=== PATIENT | male | born 1960 | race African-American/Black ===

== ENCOUNTER 2018-05-18 13:25 | Inpatient (IN) | payer OTHER ==
[2018-05-18 15:45] VITALS: BMI 24.0
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
[2018-05-18] MEDS ORDERED: MAG HYDROX/AL HYDROX/SIMETH 30 ML UNIT-DOSE CUP PO PRN (20:13)
[2018-05-18] MEDS ORDERED: NICOTINE POLACRILEX 2 MG GUM BC PRN (20:13)
[2018-05-18] MEDS ORDERED: MAGNESIUM CITRATE 300 ML BOTTLE PO PRN (20:13)
[2018-05-18] MEDS ORDERED: IBUPROFEN 400 MG TABLET (FP) PO PRN (20:13)
[2018-05-18] MEDS ORDERED: guaiFENesin/D-METHORPHAN HB 10 ML UNIT-DOSE CUPS PO PRN (20:13)
[2018-05-18] MEDS ORDERED: MENTHOL/PHENOL 1 EACH UD MM PRN (20:13)
[2018-05-18] MEDS ORDERED: chlordiazePOXIDE HCL 25 MG CAPSULE PO PRN (20:13)
[2018-05-18] MEDS ORDERED: LOPERAMIDE HCL 2 MG CAPSULE PO PRN (20:13)
[2018-05-18] MEDS ORDERED: hydrOXYzine PAMOATE 50 MG CAPSULE (FP) PO PRN (20:13)
[2018-05-18] MEDS ORDERED: MAGNESIUM HYDROX 2400MG/30ML ORAL SUSPENSION 30 ML CUP PO PRN (20:13)
[2018-05-18] MEDS ORDERED: ACETAMINOPHEN 325 MG TABLET (FP) PO PRN (20:13)
[2018-05-18] MEDS ORDERED: P-EPHED 60MG/TRIPROLIDI 2.5MG TABLET PO PRN (20:13)
[2018-05-18] MEDS: THIAMINE HCL 100 MG TABLET (FP) PO SCH (21:08)
[2018-05-18] MEDS ORDERED: MELATONIN 5 MG TABLETS PO PRN (22:00)
[2018-05-18] MEDS: chlordiazePOXIDE HCL 25 MG CAPSULE PO SCH (22:47)
[2018-05-19] MEDS: chlordiazePOXIDE HCL 25 MG CAPSULE PO SCH ×4 (05:35→22:07)
[2018-05-19] MEDS: PRENATAL VITAMINS W/ FOLIC ACID TABLET (FP) PO SCH (10:19)
[2018-05-19] MEDS: NICOTINE 21 MG/24 HOURS TOPICAL PATCH TD SCH (10:20)
[2018-05-19 10:45] LABS: URINE APPEARANCE TURBID; URINE BILIRUBIN NEGATIVE (<2.0 mg/dL); URINE GLUCOSE (UA) NEGATIVE (NEGATIVE); URINE KETONE NEGATIVE (NEGATIVE); URINE LEUK ESTERASE NEGATIVE (NEGATIVE); URINE NITRITE NEGATIVE (NEGATIVE); URINE PROTEIN NEGATIVE (NEGATIVE); URINE UROBILINOGEN NEGATIVE mg/dL (0.2-1.0)
[2018-05-19 10:52] LABS: ALBUMIN 3.8 g/dl (3.4-5.0); ANION GAP 7 MMOL/L (8-16); BLOOD UREA NITROGEN 10 mg/dL (7-18); CALCIUM 8.8 mg/dL (8.5-10.1); CHLORIDE 107 mmol/L (98-107); CO2 30 mmol/L (21-32); GLUCOSE,RANDOM 113 mg/dL (74-106); HEMATOCRIT 44.1 % (35.4-49); HEMOGLOBIN 14.7 GM/dL (11.7-16.9); MCH 31.6 pg (25.7-33.7); MCHC 33.4 g/dl (32.0-35.9); MEAN CELL VOLUME 94.6 fl (80-96); MEAN PLT VOLUME 9.3 fl (7.5-11.1); PLATELET COUNT 144 K/MM3 (134-434); POTASSIUM 4.2 mmol/L (3.5-5.1); RBC 4.66 M/mm3 (4.00-5.60); RDW 13.7 % (11.9-15.9); SGOT/AST 27 U/L (15-37); SGPT/ALT 40 U/L (12-78); SODIUM 144 mmol/L (136-145); WHITE BLOOD COUNT 6.1 K/mm3 (4.0-10.0)
[2018-05-19 10:54] LABS: ALK PHOS 115 U/L (45-117); BILIRUBIN,TOTAL 0.2 mg/dL (0.2-1.0); TOT PROT 7.5 g/dl (6.4-8.2)
[2018-05-19 11:01] LABS: URINE COLOR DK YELLOW
--- NOTE | 2018-05-19 11:36 | PN ---
S CIWA - CIWA Score Nausea/Vomitin-No Nausea/No Vomiting Muscle Tremors: 4-Moderate,w/Arms Extend Anxiety: 4-Mod. Anxious/Guarded Agitation: 4-Moderately Restless Paroxysmal Sweats: 1-Minimal Palms Moist Orientation: 0-Oriented Tacttile Disturbances: 0-None Auditory Disturbances: 0-None Visual Disturbances: 0-None Headache: 0-None Present CIWA-Ar Total Score: 13 BHS Progress Note (SOAP) Subjective: ANXIETY,IRRITABILITY,SWEATS,NICOTINE CRAVING. Objective: 05/19/18 11:39 Vital Signs 05/19/18 05/19/18 06:08 10:45 Temperature 97.3 F L 97.7 F Pulse Rate 63 69 Respiratory 18 18 Rate Blood Pressure 103/60 111/73 Laboratory Tests 05/19/18 05/19/18 05/19/18 07:40 07:40 08:20 WBC 6.1 RBC 4.66 Hgb 14.7 Hct 44.1 MCV 94.6 MCH 31.6 MCHC 33.4 RDW 13.7 Plt Count 144 MPV 9.3 Sodium 144 Potassium 4.2 Chloride 107 Carbon Dioxide 30 Anion Gap 7 L BUN 10 Creatinine 1.0 Creat Clearance w eGFR > 60 Random Glucose 113 H Calcium 8.8 Total Bilirubin 0.2 AST 27 ALT 40 Alkaline Phosphatase 115 Total Protein 7.5 Albumin 3.8 Urine Color Dk yellow Urine Appearance Turbid Urine pH 5.0 Ur Specific [place] 1.014 Urine Protein Negative Urine Glucose (UA) Negative Urine Ketones Negative Urine Blood Negative Urine Nitrite Negative Urine Bilirubin Negative Urine Urobilinogen Negative Ur Leukocyte Esterase Negative Assessment: 05/19/18 11:40 WITHDRAWAL SX Plan: CONTINUE DETOX INCREASE PO FLUIDS. NICOTINE PATCH DIRECTED
[2018-05-19] MEDS ORDERED: TRIMETHOBENZAMIDE HCL 200MG/2ML INJ IM ONE (11:44)
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
[2018-05-19] MEDS: THIAMINE HCL 100 MG TABLET (FP) PO SCH (22:06)
[2018-05-19] MEDS: risperiDONE 2 MG TABLET PO SCH (22:07)
[2018-05-20] MEDS: chlordiazePOXIDE HCL 25 MG CAPSULE PO SCH ×3 (05:09→18:12)
[2018-05-20] MEDS: risperiDONE 2 MG TABLET PO SCH ×2 (10:33→22:26)
[2018-05-20] MEDS: PRENATAL VITAMINS W/ FOLIC ACID TABLET (FP) PO SCH (10:33)
[2018-05-20] MEDS: NICOTINE 21 MG/24 HOURS TOPICAL PATCH TD SCH (10:33)
--- NOTE | 2018-05-20 11:46 | PN ---
S CIWA - CIWA Score Nausea/Vomitin-No Nausea/No Vomiting Muscle Tremors: 4-Moderate,w/Arms Extend Anxiety: 4-Mod. Anxious/Guarded Agitation: 4-Moderately Restless Paroxysmal Sweats: 1-Minimal Palms Moist Orientation: 0-Oriented Tacttile Disturbances: 0-None Auditory Disturbances: 0-None Visual Disturbances: 0-None Headache: 0-None Present CIWA-Ar Total Score: 13 BHS Progress Note (SOAP) Subjective: ANXIETY,FATIGUE,SWEATS. Objective: 05/20/18 11:45 Vital Signs 05/20/18 05/20/18 06:16 09:11 Temperature 97.1 F L 96.6 F L Pulse Rate 67 92 H Respiratory 18 16 Rate Blood Pressure 105/61 109/75 Laboratory Tests 05/19/18 05/19/18 05/19/18 07:40 07:40 07:40 WBC 6.1 RBC 4.66 Hgb 14.7 Hct 44.1 MCV 94.6 MCH 31.6 MCHC 33.4 RDW 13.7 Plt Count 144 MPV 9.3 Sodium 144 Potassium 4.2 Chloride 107 Carbon Dioxide 30 Anion Gap 7 L BUN 10 Creatinine 1.0 Creat Clearance w eGFR > 60 Random Glucose 113 H Calcium 8.8 Total Bilirubin 0.2 AST 27 ALT 40 Alkaline Phosphatase 115 Total Protein 7.5 Albumin 3.8 Urine Color Urine Appearance Urine pH Ur Specific [place] Urine Protein Urine Glucose (UA) Urine Ketones Urine Blood Urine Nitrite Urine Bilirubin Urine Urobilinogen Ur Leukocyte Esterase RPR Titer Nonreactive HIV 1&2 Antibody Screen HIV P24 Antigen 05/19/18 05/19/18 07:40 08:20 WBC RBC Hgb Hct MCV MCH MCHC RDW Plt Count MPV Sodium Potassium Chloride Carbon Dioxide Anion Gap BUN Creatinine Creat Clearance w eGFR Random Glucose Calcium Total Bilirubin AST ALT Alkaline Phosphatase Total Protein Albumin Urine Color Dk yellow Urine Appearance Turbid Urine pH 5.0 Ur Specific [place] 1.014 Urine Protein Negative Urine Glucose (UA) Negative Urine Ketones Negative Urine Blood Negative Urine Nitrite Negative Urine Bilirubin Negative Urine Urobilinogen Negative Ur Leukocyte Esterase Negative RPR Titer HIV 1&2 Antibody Screen Negative HIV P24 Antigen Negative Assessment: 05/20/18 11:46 WITHDRAWAL SX Plan: CONTINUE DETOX INCREASE PO FLUIDS
--- NOTE | 2018-05-20 14:19 | EKG ---
Test Reason : Blood Pressure : / mmHG Vent. Rate : 064 BPM Atrial Rate : 064 BPM P-R Int : 122 ms QRS Dur : 082 ms QT Int : 376 ms P-R-T Axes : 075 064 059 degrees QTc Int : 387 ms NORMAL SINUS RHYTHM NORMAL ECG NO PREVIOUS ECGS AVAILABLE Confirmed by SERGE SORIA MD ([id number]) on 05/20/2018 2:19:02 PM Referred By: Confirmed By:SERGE SORIA MD
[2018-05-20] MEDS: chlordiazePOXIDE 5 MG CAPSULE PO SCH (22:26)
[2018-05-20] MEDS: THIAMINE HCL 100 MG TABLET (FP) PO SCH (22:26)
[2018-05-21] MEDS: chlordiazePOXIDE 5 MG CAPSULE PO SCH (05:37)
[2018-05-21 05:59] VITALS: BP 104/66; PULSE 96; TEMP 97.6
--- NOTE | 2018-05-21 14:34 | PN ---
BHS Progress Note (SOAP) Subjective: DETOX COMPLETED. ALERT O X 3. Objective: 05/21/18 14:33 Vital Signs - 24 hr 05/20/18 05/20/18 05/21/18 17:41 21:40 00:30 Temperature 97.4 F L 97.7 F Pulse Rate 88 81 Respiratory 16 20 18 Rate Blood Pressure 116/75 106/69 05/21/18 05:58 Temperature 97.6 F Pulse Rate 96 H Respiratory 18 Rate Blood Pressure 104/66 Laboratory Tests 05/19/18 05/19/18 05/19/18 07:40 07:40 07:40 WBC 6.1 RBC 4.66 Hgb 14.7 Hct 44.1 MCV 94.6 MCH 31.6 MCHC 33.4 RDW 13.7 Plt Count 144 MPV 9.3 Sodium 144 Potassium 4.2 Chloride 107 Carbon Dioxide 30 Anion Gap 7 L BUN 10 Creatinine 1.0 Creat Clearance w eGFR > 60 Random Glucose 113 H Calcium 8.8 Total Bilirubin 0.2 AST 27 ALT 40 Alkaline Phosphatase 115 Total Protein 7.5 Albumin 3.8 Urine Color Urine Appearance Urine pH Ur Specific [place] Urine Protein Urine Glucose (UA) Urine Ketones Urine Blood Urine Nitrite Urine Bilirubin Urine Urobilinogen Ur Leukocyte Esterase RPR Titer Nonreactive HIV 1&2 Antibody Screen HIV P24 Antigen 05/19/18 05/19/18 07:40 08:20 WBC RBC Hgb Hct MCV MCH MCHC RDW Plt Count MPV Sodium Potassium Chloride Carbon Dioxide Anion Gap BUN Creatinine Creat Clearance w eGFR Random Glucose Calcium Total Bilirubin AST ALT Alkaline Phosphatase Total Protein Albumin Urine Color Dk yellow Urine Appearance Turbid Urine pH 5.0 Ur Specific [place] 1.014 Urine Protein Negative Urine Glucose (UA) Negative Urine Ketones Negative Urine Blood Negative Urine Nitrite Negative Urine Bilirubin Negative Urine Urobilinogen Negative Ur Leukocyte Esterase Negative RPR Titer HIV 1&2 Antibody Screen Negative HIV P24 Antigen Negative Assessment: 05/21/18 14:33 MEDICALLY STABLE Plan: D/C PT TODAY
--- NOTE | 2018-05-21 14:37 | DS ---
[facility] Detox Discharge Summary Admission Date: 05/18/18 Discharge Date: 05/21/18 - History Additional Comments: PT SIGNED OUT AMA FOR PERSONAL REASONS. ALERT O X 3. NAD. PT REPORTS HE HAS PRIMARY CARE AT [facility] Pertinent Past History: PLEASE SEE DX BELOW - Physical Exam Results Vital Signs: Vital Signs Temperature 97.6 F 05/21/18 05:58 Pulse Rate 96 H 05/21/18 05:58 Respiratory Rate 18 05/21/18 05:58 Blood Pressure 104/66 05/21/18 05:58 O2 Sat by Pulse Oximetry (%) Pertinent Admission Physical Exam Findings: WITHDRAWAL SX Laboratory Tests 05/19/18 05/19/18 05/19/18 07:40 07:40 07:40 WBC 6.1 RBC 4.66 Hgb 14.7 Hct 44.1 MCV 94.6 MCH 31.6 MCHC 33.4 RDW 13.7 Plt Count 144 MPV 9.3 Sodium 144 Potassium 4.2 Chloride 107 Carbon Dioxide 30 Anion Gap 7 L BUN 10 Creatinine 1.0 Creat Clearance w eGFR > 60 Random Glucose 113 H Calcium 8.8 Total Bilirubin 0.2 AST 27 ALT 40 Alkaline Phosphatase 115 Total Protein 7.5 Albumin 3.8 Urine Color Urine Appearance Urine pH Ur Specific [place] Urine Protein Urine Glucose (UA) Urine Ketones Urine Blood Urine Nitrite Urine Bilirubin Urine Urobilinogen Ur Leukocyte Esterase RPR Titer Nonreactive HIV 1&2 Antibody Screen HIV P24 Antigen 05/19/18 05/19/18 07:40 08:20 WBC RBC Hgb Hct MCV MCH MCHC RDW Plt Count MPV Sodium Potassium Chloride Carbon Dioxide Anion Gap BUN Creatinine Creat Clearance w eGFR Random Glucose Calcium Total Bilirubin AST ALT Alkaline Phosphatase Total Protein Albumin Urine Color Dk yellow Urine Appearance Turbid Urine pH 5.0 Ur Specific [place] 1.014 Urine Protein Negative Urine Glucose (UA) Negative Urine Ketones Negative Urine Blood Negative Urine Nitrite Negative Urine Bilirubin Negative Urine Urobilinogen Negative Ur Leukocyte Esterase Negative RPR Titer HIV 1&2 Antibody Screen Negative HIV P24 Antigen Negative - Treatment Hospital Course: Detox Protocol Followed, Detoxed Safely, Responded well, Discharged Condition Good - Medication Discharge Medications: Ambulatory Orders NK [No Known Home Medication] 05/18/18 - Diagnosis (1) Alcohol dependence with uncomplicated withdrawal Status: Acute (2) Cocaine dependence, uncomplicated Status: Acute (3) Nicotine dependence Status: Acute Qualifiers: Nicotine product type: cigarettes Substance use status: in withdrawal Qualified Code(s): F17.213 - Nicotine dependence, cigarettes, with withdrawal (4) History of hepatitis C Status: Resolved (5) Cannabis dependence, uncomplicated Status: Acute (6) Cannabis dependence, uncomplicated Status: Acute - AMA Did Patient Leave Against Medical Advice: Yes (AMA)
[2018-05-21] MEDS ORDERED: chlordiazePOXIDE HCL 10 MG CAPSULE PO SCH (23:00)
== END 2018-05-21 08:41 | disposition left against medical advice (07) | DRG 770 ==
LOC: YASAS 13:25 → Y3N 17:17
PROC: HZ2ZZZZ Detoxification Services for Substance Abuse Treatment (ICD-10-PCS; principal; 2018-05-18)
DX: F10.230 Alcohol dependence with withdrawal, uncomplicated (principal); F14.20 Cocaine dependence, uncomplicated; F12.20 Cannabis dependence, uncomplicated; F17.213 Nicotine dependence, cigarettes, with withdrawal; F32.9 Major depressive disorder, single episode, unspecified; F19.282 Other psychoactive substance dependence with psychoactive substance-induced sleep disorder; F20.0 Paranoid schizophrenia; Z91.14 Patient's other noncompliance with medication regimen; Z86.19 Personal history of other infectious and parasitic diseases; Z91.5 Personal history of self-harm
CPT/HCPCS: 36415; 80053; 81003; 85027; 86593; 87389; 93005; 93010